=== PATIENT | male | born 1935 | race Hispanic/Latino ===

== ENCOUNTER 2017-05-25 15:10 | Inpatient (IN) | payer MEDICARE ==
--- NOTE | 2017-05-25 17:04 | History and Physical Report ---
History of Present Illness Date of examination: 05/25/17 Date of admission: 05/25/17 16:19 Chief complaint: Nausea Vomiting [place] ground emesis History of present illness: Patient is an 81 yo male presenting with stomach tightness post diarrhea and vomiting. Patient states he saw Dr. Fonseca who advised him to stop taking advil and to take Tylenol instead. Patient reports he was also given a prescription for Diclofenac 75mg 1-2 pills per day. Patient has been taking the Diclofenac as prescribed together with 3-4 advil pills per day. He states he experienced diarrhea a couple of days ago. Patient reports yesterday night he had an upset stomach and vomited and describes his vomit as coffee ground in appearance. Patient states he has not had any vomiting today. Patient has past history of diverticulitis. Patient denies chest pain, shortness of breath, and N/V/D at this current time. Past History Past Surgical History: arthroscopy (Laparotomy for infected diverticulum with temporary colostomy), bowel surgery, Other (laparatomy for infected diverticulitis and temporary colostomy ) Social history: , lives with family Medications and Allergies Allergies Allergy/AdvReac Type Severity Reaction Status Date / Time No Known Allergies Allergy Unverified 05/25/17 15:19 Home Medications Medication Instructions Recorded Confirmed Last Taken Type No Known Home Medications [No 05/26/17 05/26/17 Unknown History Reported Home Medications] Active Meds: Active Medications Pantoprazole Sodium (Protonix) 40 mg IV Q12HR NONI Zolpidem Tartrate (Ambien) 5 mg PO HS NONI Review of Systems Constitutional: fatigue, weakness, poor appetite Gastrointestinal: abdominal pain, nausea, vomiting, diarrhea, coffee ground emesis Genitourinary Male: urinary frequency, urinary retention Musculoskeletal: neck pain, low back pain, limitation of motion, gait dysfunction Exam - Physical Exam Narrative exam: GENERAL: Awake alert oriented 3 speech is normal in no acute distress mildly pale but no cyanosis no jaundice HEENT: [Head examination showed normocephalic. .] [Mucous membrane is moist, pharynx is clear, no exudates or hemorrhage. Dentition is normal.] NECK: [Supple. Neck showed good range of motion. There is no adenopathy noted. No jugular venous distention and no thyromegaly.] [Neck auscultation showed no carotid bruit.] CHEST/LUNGS: [Good air exchange bilaterally. Clear to auscultation. There is no respiratory distress noted. Chest percussion normal, symmetrical chest movements with no chest wall tenderness.] HEART/CARDIOVASCULAR: [No murmur. Regular rate and rhythm. S1 and S2 only, no S3 gallop, no S4.] ABDOMEN: [Abdomen is soft, nontender. Patient has normal bowel sounds. There is no abdominal distention. Liver and spleen not palpably enlarged.] Rectal examination showed, normal sphincteric tone, no masses palpable per per rectum, stool brown strongly guaiac-positive. SKIN: [There is no rash. There is no edema. There is no diaphoresis.] NEURO: [The patient is awake, alert, and oriented. The patient is cooperative. The patient has no focal neurologic deficits. Cranial nerves 2-12 grossly normal, power is 5/5 in all the extremities tested. The patient has normal speech and gait.] MUSCULOSKELETAL: [There is no tenderness or deformity. There is no limitation range of motion. There is no evidence of acute injury.] EXTREMITIES: [No pedal edema, no varicose veins, good peripheral pulses symmetrical and bilaterally, no pretibial edema, no finger or toe clubbing.] - Constitutional Vitals: Temp Pulse Resp BP Pulse Ox 98.2 F 105 H 20 173/98 93 05/25/17 16:35 05/25/17 16:35 05/25/17 16:35 05/25/17 16:35 05/25/17 16:35 Results - Labs CBC & Chem 7: 05/25/17 17:03 05/25/17 17:02 Assessment and Plan - Patient Problems (1) Gastrointestinal bleed Current Visit: Yes Status: Acute Plan to address problem: Awaiting GI evaluation . Keep NPO , continue IV fluids . IV protonix as ordered .Upper endoscopy planned for this AM (2) Gastritis Current Visit: Yes Status: Acute Plan to address problem: Continue IV fluids .PPI as ordered (3) Diverticulosis Current Visit: Yes Status: Acute Plan to address problem: History of diverticulitis with complications .Previous laparatomy and bowel resection and temporary colostomy . Ongoing nausea and vomiting ,will order flat palte abdominal XRay for possible partial bowel obstruction secondary to adhesions . Keep NPO till GI eval is completed . (4) Osteoarthritis of both hips Current Visit: Yes Status: Acute Plan to address problem: Stable , continue current management . Awaiting elective hip arthroplasty scheduled for next three weeks .Avoid NSAIDS
[2017-05-25 17:19] LABS: Basophils % (Auto) 0.3 % (0.0-1.8); Eosinophils % (Auto) 0.3 % (0.0-4.3); Hematocrit 43.1 % (35.5-45.6); Hemoglobin 14.7 gm/dl (11.8-15.2); Lymphocytes # (Auto) 0.7 K/mm3 (1.2-5.4); Lymphocytes % (Auto) 7.1 % (13.4-35.0); Mean Corpuscular HGB Conc 34 % (32-34); Mean Corpuscular Hemoglobin 31 pg (28-32); Mean Corpuscular Volume 90 fl (84-94); Monocytes # (Auto) 0.7 K/mm3 (0.0-0.8); Platelet Count 316 K/mm3 (140-440); Red Cell Distribution Width 14.3 % (13.2-15.2)
[2017-05-25 17:31] LABS: INR 0.98 (0.87-1.13)
[2017-05-25 17:42] LABS: Alanine Aminotransferase 22 units/L (7-56); Albumin 3.6 g/dL (3.9-5); BUN/Creatinine Ratio 35; Blood Urea Nitrogen 21 mg/dL (9-20); Calcium 8.7 mg/dL (8.4-10.2); Hemolysis Index 11
[2017-05-25] MEDS: PROTONIX IV SCH (18:04)
[2017-05-25 19:37] LABS: Bilirubin,Urine NEG (Negative); Blood,Urine NEG (Negative); Color,Urine Yellow (Yellow); Mucus,Urine 3+ /HPF; Protein,Urine <15 mg/dL mg/dL (Negative); Urobilinogen,Urine < 2.0 mg/dL (<2.0)
[2017-05-25] MEDS: D5W/0.45% NACL/KCL 20 MEQ 20 MEQ/1,000 ML BAG IV SCH (21:47)
[2017-05-25] MEDS ORDERED: AMBIEN PO SCH (22:00)
[2017-05-26] MEDS: ZOFRAN IV PRN ×3 (00:33→14:43)
[2017-05-26] MEDS: REGLAN IV PRN ×2 (02:17→08:39)
--- NOTE | 2017-05-26 08:32 | Progress Note ---
Assessment and Plan - Patient Problems (1) Gastrointestinal bleed Current Visit: Yes Status: Acute Plan to address problem: Awaiting GI evaluation . Keep NPO , continue IV fluids . IV protonix as ordered .Upper endoscopy planned for this AM (2) Gastritis Current Visit: Yes Status: Acute Plan to address problem: Continue IV fluids .PPI as ordered (3) Diverticulosis Current Visit: Yes Status: Acute Plan to address problem: History of diverticulitis with complications .Previous laparatomy and bowel resection and temporary colostomy . Ongoing nausea and vomiting ,will order flat palte abdominal XRay for possible partial bowel obstruction secondary to adhesions . Keep NPO till GI eval is completed . (4) Osteoarthritis of both hips Current Visit: Yes Status: Acute Plan to address problem: Stable , continue current management . Awaiting elective hip arthroplasty scheduled for next three weeks .Avoid NSAIDS Subjective Date of service: 05/26/17 Principal diagnosis: upper GI bleed ,abdominal pain Interval history: Patient stated that he is still having nausea and had several episodes of emesis during the night up till early this morning .Patient stated that vomitus is dark but not coffee ground and no roger blood .No fever reported and patient denied abdominal pain .Last BM was yesterday afternoon around 2.00pm , normal colored and no blood in stool .Patient denied chest pain and no shortness of breath ,nausea and dry heaves ongoing , Objective - Constitutional Vitals: Vital Signs - 12hr 05/25/17 05/25/17 05/25/17 20:52 21:07 22:00 Temperature 99.2 F Pulse Rate 84 84 Pulse Rate [ 76 Left Radial] Respiratory 20 18 Rate Blood Pressure 159/92 O2 Sat by Pulse 95 96 Oximetry 05/26/17 05/26/17 05/26/17 04:52 05:00 07:16 Temperature 97.8 F 99.4 F Pulse Rate 97 H 87 Pulse Rate [ Left Radial] Respiratory 20 20 Rate Blood Pressure 135/91 139/79 O2 Sat by Pulse 94 97 Oximetry General appearance: Present: no acute distress - EENT Eyes: PERRL ENT: hearing intact, clear oral mucosa - Neck Neck: supple, normal ROM - Respiratory Respiratory effort: normal Respiratory: bilateral: CTA - Cardiovascular Rhythm: regular Heart Sounds: Present: S1 & S2 Extremities: no ischemia, pulses intact, pulses symmetrical, No edema, normal temperature, normal color, Full ROM - Gastrointestinal General gastrointestinal: Present: soft, non-tender, non-distended, hypoactive bowel sounds Rectal Exam: deferred - Genitourinary Male genitourinary: deferred - Integumentary Integumentary: warm, dry, normal turgor - Musculoskeletal Musculoskeletal: strength equal bilaterally - Neurologic Neurologic: CNII-XII intact - Psychiatric Psychiatric: appropriate mood/affect - Labs CBC & Chem 7: 05/25/17 17:03 05/25/17 17:02 Labs: Abnormal lab results 05/25/17 05/25/17 Range/Units 17:02 17:03 Lymph % (Auto) 7.1 L (13.4-35.0) % [place] % (Auto) 8.0 H (0.0-7.3) % Lymph # 0.7 L (1.2-5.4) K/mm3 Seg Neutrophils % 84.3 H (40.0-70.0) % Seg Neutrophils # 7.8 H (1.8-7.7) K/mm3 BUN 21 H (9-20) mg/dL Creatinine 0.6 L (0.8-1.5) mg/dL Glucose 120 H (75-100) mg/dL Alkaline Phosphatase 130 H (35-129) units/L Total Protein 6.2 L (6.3-8.2) g/dL Albumin 3.6 L (3.9-5) g/dL
[2017-05-26] MEDS: PROTONIX IV SCH ×2 (09:22→22:50)
[2017-05-26] MEDS: D5W/0.45% NACL/KCL 20 MEQ 20 MEQ/1,000 ML BAG IV SCH (09:28)
--- NOTE | 2017-05-26 10:53 | XRay Report ---
ABDOMEN, 2 views: History: Recurrent nausea and vomiting. Supine and upright views the abdomen demonstrate mildly dilated loops of small bowel measuring up to 4 cm in diameter. There are scattered air-fluid levels in the small bowel loops. There appears to be normal gas in the colon. No free air or pathologic calcifications. The lung bases are clear. IMPRESSION: Findings concerning for a partial small bowel obstruction. Consider further evaluation with CT abdomen pelvis with IV and oral contrast.
--- NOTE | 2017-05-26 11:06 | Gastroenterology Consultation ---
<VINSONFABIAN JASON - Last Filed: 05/26/17 11:23> History of Present Illness - Reason for Consult Consult date: 05/26/17 GI bleeding Requesting physician: LADONNA COMER - History of Present Illness MR. Fox is an 81 y/o male admitted with a 48 hour hx of initially diarrhea, then progressive vomiting. He reports several episodes of vomiting and noted dark coffee ground material. His H/H is stable. He states that he is scheduled to have hip surgery in June and has been taking Diclofenac and Advil daily since the end of January. He is now only taking the Diclofenac and Tylenol for pain. No prior GI hx. No previous EGD. He is otherwise on no other home medications. Past History Past Medical History: No medical history Past Surgical History: arthroscopy (Laparotomy for infected diverticulum with temporary colostomy), bowel surgery, Other (laparatomy for infected diverticulitis and temporary colostomy ) Social history: , lives with family Family history: no significant family history Medications and Allergies Allergies Allergy/AdvReac Type Severity Reaction Status Date / Time No Known Allergies Allergy Unverified 05/25/17 15:19 Home Medications Medication Instructions Recorded Confirmed Last Taken Type No Known Home Medications [No 05/26/17 05/26/17 Unknown History Reported Home Medications] Active Meds: Active Medications Potassium Chloride/Dextrose/Sod Cl (D5w/0.45% Nacl/Kcl 20 Meq) 20 meq in 1,000 mls @ 75 mls/hr IV DIRECT NONI Last Admin: 05/26/17 09:28 Dose: 75 mls/hr Metoclopramide HCl (Reglan) 10 mg IV Q6H PRN PRN Reason: Nausea And Vomiting Last Admin: 05/26/17 08:39 Dose: 10 mg Ondansetron HCl (Zofran) 4 mg IV Q4H PRN PRN Reason: Nausea And Vomiting Last Admin: 05/26/17 06:33 Dose: 4 mg Pantoprazole Sodium (Protonix) 40 mg IV Q12HR NONI Last Admin: 05/26/17 09:22 Dose: 40 mg Zolpidem Tartrate (Ambien) 5 mg PO HS NONI Last Admin: 05/25/17 21:47 Dose: 5 mg Review of Systems - Review of Systems All systems: negative Gastrointestinal: abdominal pain, nausea, vomiting, diarrhea Exam - Constitutional Vital Signs: Temp Pulse Resp BP Pulse Ox 99.4 F 87 20 139/79 97 05/26/17 07:16 05/26/17 07:16 05/26/17 07:16 05/26/17 07:16 05/26/17 07:16 General appearance: no acute distress, well-nourished - EENT Eyes: EOM intact ENT: hearing intact - Neck Neck: supple - Respiratory Respiratory: bilateral: CTA - Cardiovascular Rhythm: regular Heart Sounds: Present: S1 & S2 Extremities: pulses intact, No edema - Gastrointestinal General gastrointestinal: Present: soft, non-tender, non-distended, normal bowel sounds - Integumentary Integumentary: Present: warm, dry - Neurologic Neurological: alert and oriented x3 - Psychiatric Psychiatric: appropriate mood/affect, cooperative - Labs CBC & Chem 7: 05/25/17 17:03 05/25/17 17:02 Lab Results: Laboratory Results - last 24 hr 05/25/17 05/25/17 05/25/17 16:57 17:02 17:03 WBC 9.3 RBC 4.80 Hgb 14.7 Hct 43.1 MCV 90 MCH 31 MCHC 34 RDW 14.3 Plt Count 316 Lymph % (Auto) 7.1 L [place] % (Auto) 8.0 H Eos % (Auto) 0.3 Baso % (Auto) 0.3 Lymph # 0.7 L [place] # 0.7 Eos # 0.0 Baso # 0.0 Seg Neutrophils % 84.3 H Seg Neutrophils # 7.8 H PT 13.5 INR 0.98 Sodium 138 Potassium 4.0 Chloride 98.5 Carbon Dioxide 25 Anion Gap 19 BUN 21 H Creatinine 0.6 L Estimated GFR > 60 BUN/Creatinine Ratio 35 Glucose 120 H Calcium 8.7 Total Bilirubin 0.40 AST 18 ALT 22 Alkaline Phosphatase 130 H Total Protein 6.2 L Albumin 3.6 L Albumin/Globulin Ratio 1.4 Urine Color Urine Turbidity Urine pH Ur Specific [place] Urine Protein Urine Glucose (UA) Urine Ketones Urine Blood Urine Nitrite Urine Bilirubin Urine Urobilinogen Ur Leukocyte Esterase Urine WBC (Auto) Urine RBC (Auto) U Epithel Cells (Auto) Urine Mucus 05/25/17 Unknown WBC RBC Hgb Hct MCV MCH MCHC RDW Plt Count Lymph % (Auto) [place] % (Auto) Eos % (Auto) Baso % (Auto) Lymph # [place] # Eos # Baso # Seg Neutrophils % Seg Neutrophils # PT INR Sodium Potassium Chloride Carbon Dioxide Anion Gap BUN Creatinine Estimated GFR BUN/Creatinine Ratio Glucose Calcium Total Bilirubin AST ALT Alkaline Phosphatase Total Protein Albumin Albumin/Globulin Ratio Urine Color Yellow Urine Turbidity Clear Urine pH 6.0 Ur Specific [place] 1.024 Urine Protein <15 mg/dl Urine Glucose (UA) Neg Urine Ketones 20 Urine Blood Neg Urine Nitrite Neg Urine Bilirubin Neg Urine Urobilinogen < 2.0 Ur Leukocyte Esterase Neg Urine WBC (Auto) 1.0 Urine RBC (Auto) 2.0 U Epithel Cells (Auto) < 1.0 Urine Mucus 3+ Assessment and Plan 1. CGE 2. Possible partial small bowel obstruction. -H/H remains stable. Continue to monitor -Keep NPO. -Abdominal film c/w partial small bowel obstruction -WIll not be able to do EGD with obstruction -CT of A/P with oral/ IV contrast to further evaluate -Pt not vomiting at present, if continues will need NGT. -PPI BID, IV -Further recommendations to follow. <RUKHSANA RODRIGUES R - Last Filed: 05/26/17 14:21> History of Present Illness - History of Present Illness Pt had 5 hr hx diarrhea on 05/23, then had N/V of dark, coffee-ground type material the night of 05/24 and last night. No abd pain, though has rumbling. No melena. Pt seen by Dr. Comer yesterday, and had brown Heme + stool. Medications and Allergies Active Meds: Active Medications Potassium Chloride/Dextrose/Sod Cl (D5w/0.45% Nacl/Kcl 20 Meq) 20 meq in 1,000 mls @ 75 mls/hr IV DIRECT NONI Last Admin: 05/26/17 09:28 Dose: 75 mls/hr Sodium Chloride (Nacl 0.9% 1000 Ml) 1,000 mls @ 50 mls/hr IV DIRECT NONI Metoclopramide HCl (Reglan) 10 mg IV Q6H PRN PRN Reason: Nausea And Vomiting Last Admin: 05/26/17 08:39 Dose: 10 mg Ondansetron HCl (Zofran) 4 mg IV Q4H PRN PRN Reason: Nausea And Vomiting Last Admin: 05/26/17 06:33 Dose: 4 mg Pantoprazole Sodium (Protonix) 40 mg IV Q12HR [facility] Last Admin: 05/26/17 09:22 Dose: 40 mg Zolpidem Tartrate (Ambien) 5 mg PO HS [facility] Last Admin: 05/25/17 21:47 Dose: 5 mg Exam - Constitutional Vital Signs: Temp Pulse Resp BP Pulse Ox 99.4 F 87 20 139/79 97 05/26/17 07:16 05/26/17 07:16 05/26/17 07:16 05/26/17 07:16 05/26/17 07:16 - Labs CBC & Chem 7: 05/25/17 17:03 05/25/17 17:02 Lab Results: Laboratory Results - last 24 hr 05/25/17 05/25/17 05/25/17 16:57 17:02 17:03 WBC 9.3 RBC 4.80 Hgb 14.7 Hct 43.1 MCV 90 MCH 31 MCHC 34 RDW 14.3 Plt Count 316 Lymph % (Auto) 7.1 L [place] % (Auto) 8.0 H Eos % (Auto) 0.3 Baso % (Auto) 0.3 Lymph # 0.7 L [place] # 0.7 Eos # 0.0 Baso # 0.0 Seg Neutrophils % 84.3 H Seg Neutrophils # 7.8 H PT 13.5 INR 0.98 Sodium 138 Potassium 4.0 Chloride 98.5 Carbon Dioxide 25 Anion Gap 19 BUN 21 H Creatinine 0.6 L Estimated GFR > 60 BUN/Creatinine Ratio 35 Glucose 120 H Calcium 8.7 Total Bilirubin 0.40 AST 18 ALT 22 Alkaline Phosphatase 130 H Total Protein 6.2 L Albumin 3.6 L Albumin/Globulin Ratio 1.4 Urine Color Urine Turbidity Urine pH Ur Specific [place] Urine Protein Urine Glucose (UA) Urine Ketones Urine Blood Urine Nitrite Urine Bilirubin Urine Urobilinogen Ur Leukocyte Esterase Urine WBC (Auto) Urine RBC (Auto) U Epithel Cells (Auto) Urine Mucus 05/25/17 Unknown WBC RBC Hgb Hct MCV MCH MCHC RDW Plt Count Lymph % (Auto) [place] % (Auto) Eos % (Auto) Baso % (Auto) Lymph # [place] # Eos # Baso # Seg Neutrophils % Seg Neutrophils # PT INR Sodium Potassium Chloride Carbon Dioxide Anion Gap BUN Creatinine Estimated GFR BUN/Creatinine Ratio Glucose Calcium Total Bilirubin AST ALT Alkaline Phosphatase Total Protein Albumin Albumin/Globulin Ratio Urine Color Yellow Urine Turbidity Clear Urine pH 6.0 Ur Specific [place] 1.024 Urine Protein <15 mg/dl Urine Glucose (UA) Neg Urine Ketones 20 Urine Blood Neg Urine Nitrite Neg Urine Bilirubin Neg Urine Urobilinogen < 2.0 Ur Leukocyte Esterase Neg Urine WBC (Auto) 1.0 Urine RBC (Auto) 2.0 U Epithel Cells (Auto) < 1.0 Urine Mucus 3+ Assessment and Plan Findings and hx most c/w SBO, likely from adhesions after hx of colectomy with colostomy 4 yrs ago. No evidence of significant UGI bleed. - CT to assess - place NGT to suction - surgical evaluation - discussed with Dr. Block.
--- NOTE | 2017-05-26 14:30 | Cat Scan Report ---
CT ABDOMEN PELVIS WITH CONTRAST: HISTORY: Abdominal pain and distention, abdominal x-ray suspicious for partial small bowel obstruction. COMPARISON: 2 view abdomen performed the same day. TECHNIQUE: Helical CT in 1.25mm intervals following IV contrast. Sagittal and coronal reconstructions. FINDINGS: Lung bases: Normal. Liver: Normal. Biliary system: Normal. Pancreas: Normal. Spleen: Normal. Kidneys/ureters/bladder: A 3 mm calyceal stone is identified in the mid left kidney. The kidneys, ureters and bladder are unremarkable otherwise. Adrenal glands: Normal. Aorta: Normal. Intestines: The stomach, duodenum and a few proximal jejunal loops of small bowel are mildly dilated up to 4 cm. Distal small bowel loops and colon are decompressed. There appears to be a transition point in the midabdomen near the level of the umbilicus. This may represent an adhesion. There is no evidence for mass or inflammation. Appendix: Not confidently identified. Pelvic viscera: Normal. Ascites: Small pelvic ascites. Adenopathy: None. Musculoskeletal: Osteopenia and multilevel thoracolumbar spondylosis. IMPRESSION: Findings consistent with a partial mid small bowel obstruction. Small pelvic ascites.
[2017-05-26] MEDS: NACL 0.9% 1000 ML 1,000 ML IV SCH (14:43)
[2017-05-26] MEDS ORDERED: MORPHINE IV PRN (16:08)
--- NOTE | 2017-05-26 16:12 | Progress Note ---
Subjective Narrative: Surgery Consult dictated : Imp - SBO , most likel from adhesions Hx Sig colectomy for divert. perf 11/2013: Colostomy reversal 03/24 [place] Replacment 23 yrs ago Plan - NPO, NGT Objective Vital Signs - 12hr 05/26/17 05/26/17 05/26/17 04:52 05:00 07:16 Temperature 97.8 F 99.4 F Pulse Rate 97 H 87 Respiratory 20 20 Rate Blood Pressure 135/91 139/79 O2 Sat by Pulse 94 97 Oximetry 05/26/17 14:57 Temperature 99.4 F Pulse Rate 80 Respiratory 20 Rate Blood Pressure 152/91 O2 Sat by Pulse 97 Oximetry - Labs 05/25/17 17:03 05/25/17 17:02 Diabetes panel 05/25/17 Range/Units 17:02 Sodium 138 (137-145) mmol/L Potassium 4.0 (3.6-5.0) mmol/L Chloride 98.5 (98-107) mmol/L Carbon Dioxide 25 (22-30) mmol/L BUN 21 H (9-20) mg/dL Creatinine 0.6 L (0.8-1.5) mg/dL Glucose 120 H (75-100) mg/dL Calcium 8.7 (8.4-10.2) mg/dL AST 18 (5-40) units/L ALT 22 (7-56) units/L Alkaline Phosphatase 130 H (35-129) units/L Total Protein 6.2 L (6.3-8.2) g/dL Albumin 3.6 L (3.9-5) g/dL Calcium panel 05/25/17 Range/Units 17:02 Calcium 8.7 (8.4-10.2) mg/dL Albumin 3.6 L (3.9-5) g/dL Pituitary panel 05/25/17 Range/Units 17:02 Sodium 138 (137-145) mmol/L Potassium 4.0 (3.6-5.0) mmol/L Chloride 98.5 (98-107) mmol/L Carbon Dioxide 25 (22-30) mmol/L BUN 21 H (9-20) mg/dL Creatinine 0.6 L (0.8-1.5) mg/dL Glucose 120 H (75-100) mg/dL Calcium 8.7 (8.4-10.2) mg/dL Adrenal panel 05/25/17 Range/Units 17:02 Sodium 138 (137-145) mmol/L Potassium 4.0 (3.6-5.0) mmol/L Chloride 98.5 (98-107) mmol/L Carbon Dioxide 25 (22-30) mmol/L BUN 21 H (9-20) mg/dL Creatinine 0.6 L (0.8-1.5) mg/dL Glucose 120 H (75-100) mg/dL Calcium 8.7 (8.4-10.2) mg/dL Total Bilirubin 0.40 (0.1-1.2) mg/dL AST 18 (5-40) units/L ALT 22 (7-56) units/L Alkaline Phosphatase 130 H (35-129) units/L Total Protein 6.2 L (6.3-8.2) g/dL Albumin 3.6 L (3.9-5) g/dL
[2017-05-26] MEDS: ATIVAN IV PRN (22:50)
--- NOTE | 2017-05-27 00:56 | Consultation ---
SURGICAL CONSULTATION REQUESTING PHYSICIAN: Dr. Comer and ____ of Internal Medicine. REASON FOR SURGICAL CONSULTATION: Small-bowel obstruction. HISTORY OF PRESENT ILLNESS: This is an 81-year-old male patient known to be well for the past several years. He is admitted now with abdominal cramps, nausea, and vomiting. He is having intermittent episodes of vomiting for the past 48 hours. The last time he passed flatus was yesterday morning and had one episode of flatus now. He had diffuse abdominal cramps, but no severe abdominal pain. There is no history of upper or lower GI bleed. No urinary symptoms. PAST MEDICAL HISTORY: In spite of his advanced age, he does not have any hypertension or cardiovascular disease and he is extremely fit. PAST SURGICAL HISTORY: 1. Right hip hemiarthroplasty 23 years ago, expecting a revision soon. 2. I have done a sigmoid colectomy for diverticulitis perforation in November 2013 at [facility]. A colostomy was done at that time, and it was reversed in 03/2014. Since that time, he has not had any episodes of abdominal cramps, nausea, or vomiting suggestive of bowel obstruction. REVIEW OF SYSTEMS: As per the admitting physician. PHYSICAL EXAMINATION: GENERAL: Reveals a well-built and well-nourished male, alert, oriented and cooperative to examination. VITAL SIGNS: He has a low grade temperature of 99.4, heart rate is down to 80, and blood pressure 152/91. HEENT: Sclerae are nonicteric. LUNGS: Have satisfactory air entry bilaterally. CARDIOVASCULAR: Heart sounds are normal. No murmurs. ABDOMEN: Reveals well-healed scars from previous surgery. It is soft and nontender. Fair amount of tympany elicitable in the upper two-thirds of the abdomen. Bowel sounds are present, but diminished. Nasogastric tube has just been inserted, has drained about 250 mL of 300 mL of bilious material. EXTREMITIES: Lower extremities are normal. Femoral pulses are well felt. LABORATORY DATA: Reveal a white count of 9000 with a hemoglobin of 14 and hematocrit of 43%. Electrolytes are within normal range. BUN is elevated to 20 and with a creatinine of 0.6 and glucose is 120. CT scan of the abdomen and pelvis with oral contrast reveals a small-bowel obstruction. The transition zone appears to be in the mid third of the bowel in the lower mid abdomen. No free air is noted. No pneumatosis or edema of the bowel wall is evident. IMPRESSION: 1. Small-bowel obstruction, most likely secondary to adhesions from previous surgery. 2. History of sigmoid colectomy for perforated diverticulitis with colostomy and reversal of colostomy. 3. Total hip arthroplasty. PLAN: We will continue nonoperative treatment for the present. We will evaluate him tomorrow and repeat the labs. If he has full return of bowel function, nasogastric tube may be clamped and be removed. If it does not have return of bowel function, Surgery may be considered. Treatment plan discussed with him and his in detail. Thank you, Dr. Comer for asking me to see this patient. JOB# [id number] AMAYAN/NTS
[2017-05-27 06:47] LABS: Basophils % (Auto) 0.4 % (0.0-1.8); Eosinophils # (Auto) 0.1 K/mm3 (0.0-0.4); Eosinophils % (Auto) 1.2 % (0.0-4.3); Hematocrit 41.2 % (35.5-45.6); Hemoglobin 14.2 gm/dl (11.8-15.2); Lymphocytes # (Auto) 0.8 K/mm3 (1.2-5.4); Lymphocytes % (Auto) 8.9 % (13.4-35.0); Mean Corpuscular HGB Conc 34 % (32-34); Mean Corpuscular Hemoglobin 31 pg (28-32); Mean Corpuscular Volume 90 fl (84-94); Monocytes # (Auto) 0.7 K/mm3 (0.0-0.8); Monocytes % (Auto) 7.7 % (0.0-7.3); Platelet Count 272 K/mm3 (140-440); Red Blood Count 4.59 M/mm3 (3.65-5.03); Red Cell Distribution Width 14.5 % (13.2-15.2)
[2017-05-27 06:57] LABS: BUN/Creatinine Ratio 30; Blood Urea Nitrogen 21 mg/dL (9-20); Calcium 8.6 mg/dL (8.4-10.2); Hemolysis Index 4
--- NOTE | 2017-05-27 09:05 | Progress Note ---
Assessment and Plan - Patient Problems (1) Gastrointestinal bleed Current Visit: Yes Status: Acute Plan to address problem: No further upper GI coffee ground emesis since admission .NG tube in place draining dark brown secretion no blood . Clamp NG and observe (2) Gastritis Current Visit: Yes Status: Acute Plan to address problem: Continue IV fluids .PPI as ordered (3) Diverticulosis Current Visit: Yes Status: Acute Plan to address problem: History of diverticulitis with complications .Previous laparatomy and bowel resection and temporary colostomy . Nausea and vomiting has subsided after NG tube placement CT scan and flate abdominal XRay consistent with partial small bowel obstruction . Will continue with ongoing conservative management till complete resolution . (4) Osteoarthritis of both hips Current Visit: Yes Status: Acute Plan to address problem: Stable , continue current management . Awaiting elective hip arthroplasty scheduled for next three weeks .Avoid NSAIDS Subjective Date of service: 05/27/17 Principal diagnosis: upper GI bleed ,abdominal pain Interval history: Patient seen and examined . Patient stated that he feels better overall ,has not had any vomiting since NG tube was placed last night ,has been passing flatus and had a normal colored BM this morning .Denied abdominal pain and no fever reported by nursing staff .Complained of throat discomfort and requesting for ice chips . Objective - Exam Narrative Exam: GENERAL: Awake alert oriented 3 speech is normal in no acute distress mildly pale but no cyanosis no jaundice HEENT: [Head examination showed normocephalic. .] [Mucous membrane is moist, pharynx is clear, no exudates or hemorrhage. Dentition is normal.] NECK: [Supple. Neck showed good range of motion. There is no adenopathy noted. No jugular venous distention and no thyromegaly.] [Neck auscultation showed no carotid bruit.] CHEST/LUNGS: [Good air exchange bilaterally. Clear to auscultation. There is no respiratory distress noted. Chest percussion normal, symmetrical chest movements with no chest wall tenderness.] HEART/CARDIOVASCULAR: [No murmur. Regular rate and rhythm. S1 and S2 only, no S3 gallop, no S4.] ABDOMEN: [Abdomen is soft, nontender. Patient has normal bowel sounds. There is no abdominal distention. Liver and spleen not palpably enlarged.] Rectal examination showed, normal sphincteric tone, no masses palpable per per rectum, stool brown strongly guaiac-positive. SKIN: [There is no rash. There is no edema. There is no diaphoresis.] NEURO: [The patient is awake, alert, and oriented. The patient is cooperative. The patient has no focal neurologic deficits. Cranial nerves 2-12 grossly normal, power is 5/5 in all the extremities tested. The patient has normal speech and gait.] MUSCULOSKELETAL: [There is no tenderness or deformity. There is no limitation range of motion. There is no evidence of acute injury.] EXTREMITIES: [No pedal edema, no varicose veins, good peripheral pulses symmetrical and bilaterally, no pretibial edema, no finger or toe clubbing.] - Constitutional Vitals: Vital Signs - 12hr 05/26/17 05/27/17 05/27/17 22:00 02:31 07:28 Temperature 98.3 F 97.9 F Pulse Rate 80 71 77 Respiratory 20 18 Rate Blood Pressure 129/70 144/83 O2 Sat by Pulse 99 94 96 Oximetry General appearance: Present: no acute distress - EENT Eyes: PERRL ENT: clear oral mucosa - Neck Neck: supple, normal ROM - Respiratory Respiratory effort: normal Respiratory: bilateral: CTA - Cardiovascular Rhythm: regular Extremities: no ischemia, pulses intact, pulses symmetrical - Gastrointestinal General gastrointestinal: Present: soft, non-tender, non-distended, normal bowel sounds - Integumentary Integumentary: clear, warm, dry - Musculoskeletal Musculoskeletal: strength equal bilaterally - Neurologic Neurologic: CNII-XII intact - Labs CBC & Chem 7: 05/27/17 06:03 05/27/17 06:03 Labs: Abnormal lab results 05/27/17 05/27/17 Range/Units 06:03 06:03 Lymph % (Auto) 8.9 L (13.4-35.0) % [place] % (Auto) 7.7 H (0.0-7.3) % Lymph # 0.8 L (1.2-5.4) K/mm3 Seg Neutrophils % 81.8 H (40.0-70.0) % BUN 21 H (9-20) mg/dL Creatinine 0.7 L (0.8-1.5) mg/dL Glucose 105 H (75-100) mg/dL
[2017-05-27] MEDS ORDERED: HURRICAINE ONE 20% TOPICAL SPRAY MM NR (10:00)
--- NOTE | 2017-05-27 10:16 | Gastroenterology Progress Note ---
<FABIAN VINSON - Last Filed: 05/27/17 10:14> Assessment and Plan 1. PSBO 2. ? CGE -H/H remains stable. Continue to monitor -Keep NPO with NGT- currently with 300 ml output. -CT c/w PSBO -Can change PPI to daily PO will in hospital. -No signs of GI bleeding. Pt can follow up as an outpatient in 1 month. Office information provided. -GI will sign off. Further management per surgery. Subjective Date of service: 05/27/17 Principal diagnosis: upper GI bleed ,abdominal pain Interval history: Pt PSBO. NGT in place with no further vomiting. Objective - Constitutional Vitals: Temp Pulse Resp BP Pulse Ox 97.9 F 77 18 144/83 96 05/27/17 07:28 05/27/17 07:28 05/27/17 07:28 05/27/17 07:28 05/27/17 07:28 General appearance: no acute distress - EENT Eyes: EOM intact - Neck Neck: supple - Respiratory Respiratory: bilateral: CTA - Cardiovascular Rhythm: regular Heart Sounds: Present: S1 & S2 - Gastrointestinal General gastrointestinal: Present: soft, non-tender, normal bowel sounds - Labs CBC & Chem 7: 05/27/17 06:03 05/27/17 06:03 Labs: Laboratory Results - last 24 hr 05/27/17 05/27/17 06:03 06:03 WBC 9.0 RBC 4.59 Hgb 14.2 Hct 41.2 MCV 90 MCH 31 MCHC 34 RDW 14.5 Plt Count 272 Lymph % (Auto) 8.9 [place] % (Auto) 7.7 H Eos % (Auto) 1.2 Baso % (Auto) 0.4 Lymph # 0.8 L [place] # 0.7 Eos # 0.1 Baso # 0.0 Seg Neutrophils % 81.8 H Seg Neutrophils # 7.4 Sodium 142 Potassium 3.8 Chloride 104.6 Carbon Dioxide 28 Anion Gap 13 BUN 21 H Creatinine 0.7 L Estimated GFR > 60 BUN/Creatinine Ratio 30 Glucose 105 H Calcium 8.6 <RUKHSANA RODRIGUES - Last Filed: 05/27/17 11:31> Assessment and Plan D/C home on PPI and f/u. Pt seen. O/w as per Surgery. Objective - Constitutional Vitals: Temp Pulse Resp BP Pulse Ox 97.9 F 77 18 144/83 96 05/27/17 07:28 05/27/17 07:28 05/27/17 07:28 05/27/17 07:28 05/27/17 07:28 - Labs CBC & Chem 7: 05/27/17 06:03 05/27/17 06:03 Labs: Laboratory Results - last 24 hr 05/27/17 05/27/17 06:03 06:03 WBC 9.0 RBC 4.59 Hgb 14.2 Hct 41.2 MCV 90 MCH 31 MCHC 34 RDW 14.5 Plt Count 272 Lymph % (Auto) 8.9 L [place] % (Auto) 7.7 H Eos % (Auto) 1.2 Baso % (Auto) 0.4 Lymph # 0.8 L [place] # 0.7 Eos # 0.1 Baso # 0.0 Seg Neutrophils % 81.8 H Seg Neutrophils # 7.4 Sodium 142 Potassium 3.8 Chloride 104.6 Carbon Dioxide 28 Anion Gap 13 BUN 21 H Creatinine 0.7 L Estimated GFR > 60 BUN/Creatinine Ratio 30 Glucose 105 H Calcium 8.6
[2017-05-27] MEDS: PROTONIX IV SCH (10:38)
--- NOTE | 2017-05-27 17:50 | Progress Note ---
Subjective Narrative: Mr Fox feels very well, passed flatus with BMs several times, ambulated well Abd - soft, non tender with active bowel sounds\ NGT out put minimal after th einitial insertion last hazel. clamped for 3.5 hrs tolerated well Imp - resolving SBO from adhesions Plan - D/C NGT now, keep NPO under observation with only ice chips If he does well, will start clear liquids tomorrow a.m Disc with him in dertail Objective Vital Signs - 12hr 05/27/17 05/27/17 07:28 13:46 Temperature 97.9 F 97.9 F Pulse Rate 77 77 Respiratory 18 18 Rate Blood Pressure 144/83 143/74 O2 Sat by Pulse 96 98 Oximetry - Labs 05/27/17 06:03 05/27/17 06:03 Diabetes panel 05/27/17 Range/Units 06:03 Sodium 142 (137-145) mmol/L Potassium 3.8 (3.6-5.0) mmol/L Chloride 104.6 (98-107) mmol/L Carbon Dioxide 28 (22-30) mmol/L BUN 21 H (9-20) mg/dL Creatinine 0.7 L (0.8-1.5) mg/dL Glucose 105 H (75-100) mg/dL Calcium 8.6 (8.4-10.2) mg/dL Calcium panel 05/27/17 Range/Units 06:03 Calcium 8.6 (8.4-10.2) mg/dL Pituitary panel 05/27/17 Range/Units 06:03 Sodium 142 (137-145) mmol/L Potassium 3.8 (3.6-5.0) mmol/L Chloride 104.6 (98-107) mmol/L Carbon Dioxide 28 (22-30) mmol/L BUN 21 H (9-20) mg/dL Creatinine 0.7 L (0.8-1.5) mg/dL Glucose 105 H (75-100) mg/dL Calcium 8.6 (8.4-10.2) mg/dL Adrenal panel 05/27/17 Range/Units 06:03 Sodium 142 (137-145) mmol/L Potassium 3.8 (3.6-5.0) mmol/L Chloride 104.6 (98-107) mmol/L Carbon Dioxide 28 (22-30) mmol/L BUN 21 H (9-20) mg/dL Creatinine 0.7 L (0.8-1.5) mg/dL Glucose 105 H (75-100) mg/dL Calcium 8.6 (8.4-10.2) mg/dL
[2017-05-27] MEDS: ATIVAN IV PRN (21:42)
[2017-05-28] MEDS: NACL 0.9% 1000 ML 1,000 ML IV SCH (00:50)
[2017-05-28 05:17] LABS: Basophils % (Auto) 0.7 % (0.0-1.8); Eosinophils # (Auto) 0.4 K/mm3 (0.0-0.4); Eosinophils % (Auto) 5.4 % (0.0-4.3); Hematocrit 40.9 % (35.5-45.6); Hemoglobin 13.8 gm/dl (11.8-15.2); Lymphocytes # (Auto) 0.9 K/mm3 (1.2-5.4); Lymphocytes % (Auto) 13.7 % (13.4-35.0); Mean Corpuscular HGB Conc 34 % (32-34); Mean Corpuscular Hemoglobin 31 pg (28-32); Mean Corpuscular Volume 91 fl (84-94); Monocytes # (Auto) 0.7 K/mm3 (0.0-0.8); Monocytes % (Auto) 10.3 % (0.0-7.3); Platelet Count 251 K/mm3 (140-440); Red Blood Count 4.52 M/mm3 (3.65-5.03); Red Cell Distribution Width 14.3 % (13.2-15.2)
[2017-05-28 05:41] LABS: BUN/Creatinine Ratio 35; Blood Urea Nitrogen 21 mg/dL (9-20); Calcium 8.1 mg/dL (8.4-10.2); Hemolysis Index 8
[2017-05-28 08:37] VITALS: BP 147/84
[2017-05-28] MEDS ORDERED: PROTONIX IV SCH (10:00)
--- NOTE | 2017-05-28 10:25 | Progress Note ---
Assessment and Plan - Patient Problems (1) Gastrointestinal bleed Current Visit: Yes Status: Resolved Plan to address problem: No further upper GI since admission . (2) Gastritis Current Visit: Yes Status: Acute Plan to address problem: Change to oral PPI (3) Diverticulosis Current Visit: Yes Status: Acute Plan to address problem: History of diverticulitis with complications .Previous laparatomy and bowel resection and temporary colostomy . Nausea and vomiting has subsided after NG tube discontinued . (4) Osteoarthritis of both hips Current Visit: Yes Status: Acute Plan to address problem: Stable , continue current management . Awaiting elective hip arthroplasty scheduled for next three weeks .Avoid NSAIDS (5) Small intestine obstruction Current Visit: Yes Status: Acute Plan to address problem: Resolved with conservative management . Will keep on liquid to soft diet and advance as tolerated . DC if cleared by General Surgery later today . Subjective Date of service: 05/28/17 Principal diagnosis: upper GI bleed ,abdominal pain Interval history: Patient feels better overall . No further emesis since NG tube was dicontnued yesterday ,patient has had a small BM this morning and tolerated jello and juice without nausea or vomiting this morning . Objective - Exam Narrative Exam: GENERAL: Awake alert oriented 3 speech is normal in no acute distress mildly pale but no cyanosis no jaundice HEENT: [Head examination showed normocephalic. .] [Mucous membrane is moist, pharynx is clear, no exudates or hemorrhage. Dentition is normal.] NECK: [Supple. Neck showed good range of motion. There is no adenopathy noted. No jugular venous distention and no thyromegaly.] [Neck auscultation showed no carotid bruit.] CHEST/LUNGS: [Good air exchange bilaterally. Clear to auscultation. There is no respiratory distress noted. Chest percussion normal, symmetrical chest movements with no chest wall tenderness.] HEART/CARDIOVASCULAR: [No murmur. Regular rate and rhythm. S1 and S2 only, no S3 gallop, no S4.] ABDOMEN: [Abdomen is soft, nontender. Patient has normal bowel sounds. There is no abdominal distention. Liver and spleen not palpably enlarged.] Rectal examination showed, normal sphincteric tone, no masses palpable per per rectum, stool brown strongly guaiac-positive. SKIN: [There is no rash. There is no edema. There is no diaphoresis.] NEURO: [The patient is awake, alert, and oriented. The patient is cooperative. The patient has no focal neurologic deficits. Cranial nerves 2-12 grossly normal, power is 5/5 in all the extremities tested. The patient has normal speech and gait.] MUSCULOSKELETAL: [There is no tenderness or deformity. There is no limitation range of motion. There is no evidence of acute injury.] EXTREMITIES: [No pedal edema, no varicose veins, good peripheral pulses symmetrical and bilaterally, no pretibial edema, no finger or toe clubbing.] - Constitutional Vitals: Vital Signs - 12hr 05/28/17 05/28/17 02:04 07:24 Temperature 98.2 F 98.1 F Pulse Rate 70 68 Respiratory 18 20 Rate Blood Pressure 105/80 147/84 O2 Sat by Pulse 96 97 Oximetry - Labs CBC & Chem 7: 05/28/17 04:44 05/28/17 04:44 Labs: Abnormal lab results 05/28/17 05/28/17 Range/Units 04:44 04:44 [place] % (Auto) 10.3 H (0.0-7.3) % Eos % (Auto) 5.4 H (0.0-4.3) % Lymph # 0.9 L (1.2-5.4) K/mm3 BUN 21 H (9-20) mg/dL Creatinine 0.6 L (0.8-1.5) mg/dL Calcium 8.1 L (8.4-10.2) mg/dL
--- NOTE | 2017-05-28 11:07 | Discharge Summary ---
Providers - Providers Date of Admission: 05/25/17 16:19 Date of discharge: 05/28/17 Attending physician: LADONNA WALTON 05/25/17 15:32 Consult to Physician [CONS] Routine Comment: called ans. serv. @[id number] /donna Consulting Provider: IGOR HURTADO Physician Instructions: Reason For Exam: GI BLEED Primary care physician: LADONNA WALTON Hospitalization Reason for admission: Nausea , vomiting , coffee ground emesis Condition: Good Pertinent studies: Flat plate abdominal XRay CT scan of the abdomen Both showing partial small bowel obstruction . Hospital course: 81 year old male admitted from the office after patient had presented with nausea and vomiting as well as diarrhea which started during the night . Patient reported five loose bowel movement and multiple episodes of vomiting mostly coffee ground emesis .Patient denied fever or chills Patient was admitted and GI consult was obtained , patient was kept NPO and placed on IV fluid with D5 1/2 Normal saline as well as IV protonix . Patient was evaluated by GI Dr Talley and planned was made for upper GI endoscopy for the next morning . Patient continued with multiple episodes of nausea and vomiting all through the night and was thus ordered NG tube placed and to have an Xray of the abdomen later followed with CT abdomen with oral contrast and both showed evidence of partial small bowel obstruction .Large amount of gastric secretion was drained after which patient improved clinicalle and no further emesis . NG tube was discontinued yesterday and patient has not had any further vomiting and has had 2 bowel movement and passing flatus . As at this morning , patient tolerated juice and small cups of jello and was able to ambulate in the hallway . No further emesis and no diarrhea . Patient is asessed stable for discharged after being cleared by surgery to follow up as outpatient in one week . Disposition: [id number] TO HOME OR SELFCARE - Discharge Diagnoses (1) Gastrointestinal bleed Status: Resolved (2) Gastritis Status: Acute (3) Diverticulosis Status: Acute (4) Osteoarthritis of both hips Status: Acute (5) Small intestine obstruction Status: Acute Core Measure Documentation - Palliative Care Palliative Care/ Comfort Measures: Not Applicable - Core Measures Any of the following diagnoses?: none Exam - Physical Exam Narrative exam: GENERAL: Awake alert oriented 3 speech is normal in no acute distress mildly pale but no cyanosis no jaundice HEENT: [Head examination showed normocephalic. .] [Mucous membrane is moist, pharynx is clear, no exudates or hemorrhage. Dentition is normal.] NECK: [Supple. Neck showed good range of motion. There is no adenopathy noted. No jugular venous distention and no thyromegaly.] [Neck auscultation showed no carotid bruit.] CHEST/LUNGS: [Good air exchange bilaterally. Clear to auscultation. There is no respiratory distress noted. Chest percussion normal, symmetrical chest movements with no chest wall tenderness.] HEART/CARDIOVASCULAR: [No murmur. Regular rate and rhythm. S1 and S2 only, no S3 gallop, no S4.] ABDOMEN: [Abdomen is soft, nontender. Patient has normal bowel sounds. There is no abdominal distention. Liver and spleen not palpably enlarged.] Rectal examination showed, normal sphincteric tone, no masses palpable per per rectum, stool brown strongly guaiac-positive. SKIN: [There is no rash. There is no edema. There is no diaphoresis.] NEURO: [The patient is awake, alert, and oriented. The patient is cooperative. The patient has no focal neurologic deficits. Cranial nerves 2-12 grossly normal, power is 5/5 in all the extremities tested. The patient has normal speech and gait.] MUSCULOSKELETAL: [There is no tenderness or deformity. There is no limitation range of motion. There is no evidence of acute injury.] EXTREMITIES: [No pedal edema, no varicose veins, good peripheral pulses symmetrical and bilaterally, no pretibial edema, no finger or toe clubbing.] - Constitutional Vitals: Temp Pulse Resp BP Pulse Ox 98.1 F 68 20 147/84 97 05/28/17 07:24 05/28/17 07:24 05/28/17 07:24 05/28/17 07:24 05/28/17 07:24 Plan Activity: no restrictions (Discharge only after evaluation by General Surgery later this afternoon ) Weight Bearing Status: Full Weight Bearing Diet: advance as tolerated Follow up with: LADONNA WALTON MD [Primary Care Provider] - 7 Days Pending Studies Patient to be discharged later today after clearance by General Surgery .
--- NOTE | 2017-05-28 12:52 | Progress Note ---
Assessment and Plan Cleared for discharge on full liquid diet. He will remain on a full liquid diet until he feels completely normal and then diet as tolerated. No activity restrictions. Subjective Date of service: 05/28/17 Patient Reports: Positive: no new complaints, feels better, flatus. Negative: nausea, vomiting Objective Vital Signs - 12hr 05/28/17 05/28/17 05/28/17 02:04 07:24 10:00 Temperature 98.2 F 98.1 F Pulse Rate 70 68 Pulse Rate [ 68 Left Radial] Respiratory 18 20 20 Rate Blood Pressure 105/80 147/84 O2 Sat by Pulse 96 97 97 Oximetry - Abdomen soft, not tender, bowel sounds normal, not distended - Labs 05/28/17 04:44 05/28/17 04:44 Diabetes panel 05/28/17 Range/Units 04:44 Sodium 141 (137-145) mmol/L Potassium 3.7 (3.6-5.0) mmol/L Chloride 102.2 (98-107) mmol/L Carbon Dioxide 26 (22-30) mmol/L BUN 21 H (9-20) mg/dL Creatinine 0.6 L (0.8-1.5) mg/dL Glucose 79 (75-100) mg/dL Calcium 8.1 L (8.4-10.2) mg/dL Calcium panel 05/28/17 Range/Units 04:44 Calcium 8.1 L (8.4-10.2) mg/dL Pituitary panel 05/28/17 Range/Units 04:44 Sodium 141 (137-145) mmol/L Potassium 3.7 (3.6-5.0) mmol/L Chloride 102.2 (98-107) mmol/L Carbon Dioxide 26 (22-30) mmol/L BUN 21 H (9-20) mg/dL Creatinine 0.6 L (0.8-1.5) mg/dL Glucose 79 (75-100) mg/dL Calcium 8.1 L (8.4-10.2) mg/dL Adrenal panel 05/28/17 Range/Units 04:44 Sodium 141 (137-145) mmol/L Potassium 3.7 (3.6-5.0) mmol/L Chloride 102.2 (98-107) mmol/L Carbon Dioxide 26 (22-30) mmol/L BUN 21 H (9-20) mg/dL Creatinine 0.6 L (0.8-1.5) mg/dL Glucose 79 (75-100) mg/dL Calcium 8.1 L (8.4-10.2) mg/dL
== END 2017-05-28 13:45 | disposition home or self-care (01) | DRG 388 ==
LOC: 2B-ACE 15:10 → UNDOADMIN 15:10 → 2B-ACE 16:19
PROVIDERS: ADMIT Internal Medicine; ATTEND Internal Medicine
PROC: 0D9670Z Drainage of Stomach with Drainage Device, Via Natural or Artificial Opening (ICD-10-PCS; principal; 2017-05-26)
DX: K56.50 Intestinal adhesions [bands], unspecified as to partial versus complete obstruction (principal); K29.01 Acute gastritis with bleeding; K57.90 Diverticulosis of intestine, part unspecified, without perforation or abscess without bleeding; M16.0 Bilateral primary osteoarthritis of hip
CPT/HCPCS: 36415; 74019; 74177; 80048; 80053; 81001; 85025; 85610; C9113; J2060; J2405; J2765; J7030; Q9967